=== PATIENT | female | born 1960 | race Caucasian/White ===

== ENCOUNTER → 2016-07-09 | Outpatient (CLI) | payer BC ==
[2015-12-19 10:26] VITALS: BP 132/71
--- NOTE | 2016-07-10 09:46 | MG ---
HISTORY: SCREENING Comparison: 04/17/2014 FINDINGS: Bilateral CC and MLO projections of the right and left breast were obtained. Scattered fibroglandul ar tissue is seen to be present. No significant architectural distortion, mass or clustered microca lcifications can be observed to suggest malignancy. No skin thickening or nipple retraction is appr eciated. No pathological lymphadenopathy can be identified. Benign-appearing calcifications scatte red throughout the right and left breasts are observed. IMPRESSION: NO RADIOGRAPHIC EVIDENCE OF MALIGNANCY. ACR CATEGORY: 2 - benign findings. FOLLOW-UP EXAM 1 YEAR. Diagnostic CAD was utilized and reviewed. * 0 (ZERO) - ASSESSMENT INCOMPLETE; ADDITIONAL IMAGING IS NEEDED. * 1/ (ONE) - NEGATIVE. * 2/II (TWO) - BENIGN FINDINGS. * 3/III (THREE) - PROBABLY BENIGN FINDING; SHORT INTERVAL FOLLOW-UP SUGGESTED. * 4/IV (FOUR) - SUSPICIOUS ABNORMALITY; BIOPSY SHOULD BE CONSIDERED. * 5/V - HIGHLY SUSPICIOUS OF MALIGNANCY; BIOPSY SHOULD BE PERFORMED. A NEGATIVE X-RAY REPORT SHOULD NOT DELAY BIOPSY IF A DOMINANT OR CLINICALLY SUSPICIOUS MASS IS PRESENT; 4 TO 8 PERCENT OF CANCERS ARE NOT IDENTIFIED BY X-RAY. A NEG ATIVE REPORT MAY REINFORCE THE CLINICAL IMPRESSION. ADENOSIS AND DENSE BREASTS MAY OBSCURE AN UNDER LYING NEOPLASM. Reported By:
== END ==
LOC: RAD 11:05
PROVIDERS: ATTEND Obstetrics & Gynecology
DX: Z12.31 Encounter for screening mammogram for malignant neoplasm of breast (principal)
CPT/HCPCS: 77067

== ENCOUNTER 2016-10-21 09:32 | Inpatient (IN) | payer BC ==
[2016-10-21] MEDS ORDERED: KAOPECTATE (NEW FORMULA) PO PRN (12:50)
[2016-10-21] MEDS ORDERED: LIBRIUM PO PRN (12:50)
[2016-10-21] MEDS ORDERED: MAALOX or MYLANTA PO PRN (12:50)
[2016-10-21] MEDS ORDERED: MOTRIN TAB 800 MG PO PRN (12:50)
[2016-10-21] MEDS ORDERED: MILK OF MAGNESIA PO PRN (12:50)
[2016-10-21] MEDS ORDERED: PHENOBARBITAL SODIUM INJ 65 MG VIAL IM PRN (12:50)
[2016-10-21 13:20] LABS: BASOPHILS % (AUTO) 0.4 % (0.2-1.0); MEAN PLATELET VOLUME 8.5 fL (7.4-11.0); MONOCYTES # (AUTO) 0.5 x10^3/uL (0.3-0.8); WHITE BLOOD COUNT 7.6 X10^3/uL (3.6-10.0)
[2016-10-21 13:22] LABS: EOSINOPHILS # (AUTO) 0.1 x10^3/uL (0.0-0.2); EOSINOPHILS % (AUTO) 1.9 % (0.9-2.9); HEMATOCRIT 39.7 % (36.0-47.0); HEMOGLOBIN 13.5 g/dL (12.0-16.0); LYMPHOCYTES % (AUTO) 26.9 % (21.0-51.0); MEAN CORPUSCULAR HEMOGLOBIN 29.6 pg (27.0-34.0); MEAN CORPUSCULAR HGB CONC 33.9 g/dL (33.0-35.0); MEAN CORPUSCULAR VOLUME 87.4 fL (80.0-100.0); MONOCYTES % (AUTO) 6.6 % (0.0-13.0); NEUTROPHILS # (AUTO) 4.9 x10^3/uL (2.2-4.8); NEUTROPHILS % (AUTO) 64.2 % (42.0-75.0); PLATELET COUNT 276 X10^3/uL (150.0-450.0); RED BLOOD COUNT 4.54 X10^6/uL (3.5-5.4); RED CELL DISTRIBUTION WIDTH 14.1 % (11.6-16.5)
--- NOTE | 2016-10-21 13:35 | DR.H&P ---
H&P - History & Physical for Day of: H&P Date: 10/21/16 - Chief Complaint Chief Complaint: weakness, muscle cramps, severe joint pain, n/v/d, weight loss , chest pain and elevated blood pressure - Allergies Allergies/Adverse Reactions: Allergies Allergy/AdvReac Type Severity Reaction Status Date / Time MS Cefuroxime [From Zinacef] Allergy Severe Verified 12/09/15 00:56 MS Cephalosporins Allergy Intermediate Verified 12/09/15 00:56 [Cephalosporins] MS Codeine [Codeine] Allergy Intermediate NAUSEA Verified 12/09/15 00:56 MS Erythromycin Allergy Intermediate Verified 12/09/15 00:56 [Erythromycin] MS Iodine Allergy Intermediate edema Verified 12/09/15 00:56 MS Meperidine Allergy Intermediate NAUSEA Verified 12/09/15 00:56 [From Demerol HCl] MS Morphine [Morphine] Allergy Intermediate NAUSEA Verified 12/09/15 00:56 MS Sulfa Drugs Allergy Intermediate Verified 12/09/15 00:56 MS Povidone Iodine Allergy Mild RASH Verified 12/09/15 00:56 [From Betadine] - History of Present Illness History of Present Illness: 56 WF DIRECT ADMIT FROM DR LIND OFFICE AFTER PRESENTING WITH CO PAIN ALL OVER, MUSCLE AND JOINT PAIN, N/V/D AND CHEST PAIN. PT HAS PMH OF LUMBAR AND CERVICAL SPINE DDD AND HAS BEEN ON OPIOIDS FOR YEARS, PT RECENTLY DECIDED TO TAPER OF METHADONE, SHE STATES SHE HASNT TAKEN ANY IN OVER 2-3 WEEKS. PT CO SEVERE JOINT PAIN AND CHEST PRESSURE ALONG WITH N/V/D. PT CO 10LBS WEIGHT LOSS SINCE SHE WAS LAST SEEN IN OUR OFFICE 2 WEEKS AGO FOR MEDICAL MANAGEMENT OF SELF DETOX PLAN. PT HAD PMH OF HTN AND HER BP IN OFFICE WAS 170/100. PLAN TO ADMIT FOR EVALUATION OF CHEST PAIN AND TREATMENT FOR APPARENT MEDICATION WITHDRAWLS. PLAN TO OBTAIN CARIDAC ENZYMES AND EKGS AND DETOX PROTOCOL. RESUME HOME BP MEDICATION - Past Medical History Past Medical History: Anxiety, Arthritis, Depression, Hypertension, Hypothyroidism Additional Medical History: MORBID OBESITY, NARCOLEPSY, CARDIAC ARRHYTHMIA, HYPOMAGNESEMIA, BACK PAIN, DEGENERATIVE DISC DISEASE - Past Surgical History Surgical History: Tonsillectomy - Family History Family Medical History: Diabetes Mellitus - Social History Does patient currently use any type of tobacco product: No Have you used tobacco products in the last 12 months: No Type of Tobacco Use: None Does any household member use tobacco: No Alcohol Use: None Drug Use: None - Review of Systems Constitutional: Chills, Sweats, Weakness Eyes: No Symptoms Reported ENT: No Symptoms Reported Respiratory: No Symptoms Reported Cardiovascular: Chest Pain, Palpitations Gastrointestinal: Nausea, Vomiting, Abdominal Pain, Diarrhea Genitourinary: No Symptoms Reported Musculoskeletal: Arm Pain, Back Pain, Leg Pain Skin: No Symptoms Reported Neurological: Weakness - Physical Exam Vital Signs: Temperature 97.9 F Pulse Rate [Right Brachial] 56 Respiratory Rate 18 Blood Pressure [Right Arm] 179/84 Blood Pressure 132/71 O2 Sat by Pulse Oximetry 99 Oriented: Normal Eyes: Normal Ear: Normal Nose: Normal Throat: Dry Respiratory: Clear Throughout Cardiovascular: Normal : Normal Auscultation: Bowel Sounds: Normal Palpation: Normal Tenderness: Normal Skin: Diaphoresis Musculoskeletal: Wrist, Hip, Knee, Back:Thoracic, Back:Lumbar, Tender Mood Description: Anxious Affect: Anxious, Depressed Speech Pattern: Clear, Appropriate - Assessment/Plan (1) Chest pain Qualifiers: Chest pain type: precordial chest pain Ischemic chest pain type: I Qualified Code(s): R07.2 - Precordial pain Status: Acute Plan: ADMIT, SERIAL EKG'S CE. BP CONTROL (2) Nausea vomiting and diarrhea Status: Acute Plan: POSSIBLE OPIOID WITHDRAWL SYMPTONS, SEE PMH. DETOX PROTOCOL (3) Hypertension Qualifiers: Hypertension type: H Status: Acute (4) Anxiety Status: Acute (5) Chronic pain disorder Status: Acute
[2016-10-21 13:45] LABS: BLOOD ALCOHOL < 3 mg/dL (0-19.9); CKMB % 1.3 % (<4); CREATINE KINASE 76 Units/L (26-192); TROPONIN I < 0.02 ng/mL (0-1.5)
[2016-10-21 15:05] LABS: BILIRUBIN,URINE NEGATIVE (NEGATIVE); BLOOD/HEMOGLOBIN,URINE NEGATIVE (NEGATIVE); GLUCOSE, URINE NEGATIVE (NEGATIVE); KETONES,URINE NEGATIVE (NEGATIVE); LEUKOCYTE ESTERASE ,URINE NEGATIVE (NEGATIVE); NITRITES,URINE NEGATIVE (NEGATIVE); PROTEIN,URINE NEGATIVE (NEGATIVE); UROBILINOGEN,URINE NORMAL (NORMAL)
[2016-10-21] MEDS: NS 1000 ML 1,000 ML with THIAMINE HCL INJ 100 MG, MAGNESIUM SULFATE 50% INJ 1 GM, MVI I... IV SCH ×5 (15:08)
[2016-10-21 15:12] LABS: APPEARANCE,URINE CLEAR (CLEAR); BACTERIA,URINE TRACE /HPF (NEGATIVE); COLOR,URINE YELLOW (YELLOW); RBC,URINE 0-1 /HPF (NEGATIVE); SQUAMOUS EPITHELIAL CELL,UR FEW /HPF (NEGATIVE)
[2016-10-21] MEDS: MAGNESIUM SULFATE 50% INJ IM SCH ×2 (15:16→20:58)
[2016-10-21] MEDS: PHENOBARBITAL TAB 30 MG (32.4MG) PO SCH ×3 (15:16→20:51)
[2016-10-21 15:27] VITALS: BMI 41.1
[2016-10-21] MEDS ORDERED: CYTOTEC PO PRN (15:38)
[2016-10-21 19:48] LABS: CKMB % 1.1 % (<4); CREATINE KINASE 93 Units/L (26-192); CREATINE KINASE MB < 1.0 ng/mL (0-4.0); TROPONIN I < 0.02 ng/mL (0-1.5)
[2016-10-21] MEDS: AMBIEN PO SCH (20:51)
[2016-10-21] MEDS: DYLOJECT INJ IVP SCH (20:52)
[2016-10-22 01:54] LABS: CKMB % 1.7 % (<4); CREATINE KINASE 58 Units/L (26-192); CREATINE KINASE MB < 1.0 ng/mL (0-4.0); TROPONIN I < 0.02 ng/mL (0-1.5)
[2016-10-22] MEDS: MAGNESIUM SULFATE 50% INJ IM SCH ×2 (04:53→13:17)
--- NOTE | 2016-10-22 06:40 | RAD ---
HISTORY: Hypertension, chest pain Study: Two-view chest Comparison: December 09, 2015 Findings: The trachea is midline. The cardiac silhouette is unremarkable. The lungs are clear without focal infiltrate or effusion. The bony thorax is unremarkable. IMPRESSION: 1. No acute cardiopulmonary disease. Reported By:
[2016-10-22] MEDS: PHENOBARBITAL TAB 30 MG (32.4MG) PO SCH ×4 (08:42→20:40)
[2016-10-22] MEDS: DYLOJECT INJ IVP SCH (08:43)
[2016-10-22] MEDS ORDERED: THIAMINE HCL INJ IM SCH (09:00)
[2016-10-22] MEDS: SYNTHROID 25 mcg TAB PO SCH (11:39)
[2016-10-22] MEDS: NS 1000 ML 1,000 ML with THIAMINE HCL INJ 100 MG, MAGNESIUM SULFATE 50% INJ 1 GM, MVI I... IV SCH ×10 (13:21→18:21)
[2016-10-22] MEDS ORDERED: TORADOL 15 MG VIAL IVP PRN (18:02)
[2016-10-22] MEDS ORDERED: NAPROSYN PO PRN (18:18)
[2016-10-22] MEDS ORDERED: ZANAFLEX PO PRN (18:19)
--- NOTE | 2016-10-22 18:23 | PCM.PROG ---
Progress Note - Progress Note for Day of Date: 10/22/16 - Subjective Subjective: pt co pain all over this am, normally take nsaid arthrotec home med , pt cardiac stable, reveiewed with pt. will repeat am labs, continue with detox protocol, toradol iv prn pain and zanaflex. pt co lle swelling and pain, pt states history of venous insufficiency, will us le, obtain report from vascular dr mtz in [place]. - Past Medical Family Social History Past Med/Fam/Surg Hx: No changes since H&P Allergies: Allergies cefuroxime Allergy (Verified 10/21/16 16:53) Cephalosporins Allergy (Verified 10/21/16 16:53) codeine Allergy (Verified 10/21/16 16:53) erythromycin base Allergy (Verified 10/21/16 16:53) iodine Allergy (Verified 10/21/16 16:53) meperidine Allergy (Verified 10/21/16 16:53) morphine Allergy (Verified 10/21/16 16:53) povidone-iodine Allergy (Verified 10/21/16 16:53) Sulfa (Sulfonamide Antibiotics) [SULFA] Allergy (Verified 10/21/16 16:53) - Review of Systems ROS: No change since H&P - Vital Signs and I&O's Vital Signs: Temperature 97.8 F Pulse Rate [Right Brachial] 66 Respiratory Rate 20 Blood Pressure [Left Arm] 181/76 Blood Pressure [Right Arm] 164/77 Blood Pressure 132/71 O2 Sat by Pulse Oximetry 97 Intake and Output: Intake & Output 10/20/16 10/21/16 10/22/16 10/23/16 11:59 11:59 11:59 11:59 Intake Total 1320 760 Output Total 600 Balance 720 760 - Physical Exam Oriented: Normal Eyes: Normal Ear: Normal Nose: Normal Throat: Dry Cardiovascular: Normal, Edema (left > right +1) : Normal Auscultation: Bowel Sounds: Normal Tenderness: Normal Skin: Diaphoresis Musculoskeletal: Wrist, Hip, Knee, Back:Thoracic, Back:Lumbar, Tender Mood Description: Anxious Affect: Anxious, Depressed Speech Pattern: Clear, Appropriate - Laboratory and Diagnostics Result Diagrams: 10/21/16 13:10 Labs: Laboratory WBC 7.6 X10^3/uL (3.6-10.0) 10/21/16 13:10 RBC 4.54 X10^6/uL (3.5-5.4) 10/21/16 13:10 Hgb 13.5 g/dL (12.0-16.0) 10/21/16 13:10 Hct 39.7 % (36.0-47.0) 10/21/16 13:10 MCV 87.4 fL (80.0-100.0) 10/21/16 13:10 MCH 29.6 pg (27.0-34.0) 10/21/16 13:10 MCHC 33.9 g/dL (33.0-35.0) 10/21/16 13:10 RDW 14.1 % (11.6-16.5) 10/21/16 13:10 Plt Count 276 X10^3/uL (150.0-450.0) 10/21/16 13:10 Plt Count Comment Cancelled 10/21/16 13:10 MPV 8.5 fL (7.4-11.0) 10/21/16 13:10 Neut % 64.2 % (42.0-75.0) 10/21/16 13:10 Lymph % 26.9 % (21.0-51.0) 10/21/16 13:10 [place] % 6.6 % (0.0-13.0) 10/21/16 13:10 Eos % 1.9 % (0.9-2.9) 10/21/16 13:10 Baso % 0.4 % (0.2-1.0) 10/21/16 13:10 Neut # 4.9 x10^3/uL (2.2-4.8) H 10/21/16 13:10 Lymph # 2.0 X10^3/uL (1.3-2.9) 10/21/16 13:10 [place] # 0.5 x10^3/uL (0.3-0.8) 10/21/16 13:10 Eos # 0.1 x10^3/uL (0.0-0.2) 10/21/16 13:10 Baso # 0.0 X10^3/uL (0.0-0.1) 10/21/16 13:10 Absolute Nucleated RBC 0.0 /100WBC 10/21/16 13:10 Total Counted Cancelled 10/21/16 13:10 Neutrophils % (Manual) Cancelled 10/21/16 13:10 Band Neutrophils % Cancelled 10/21/16 13:10 Lymphocytes % (Manual) Cancelled 10/21/16 13:10 Monocytes % (Manual) Cancelled 10/21/16 13:10 Eosinophils % (Manual) Cancelled 10/21/16 13:10 Basophils % (Manual) Cancelled 10/21/16 13:10 Metamyelocytes % Cancelled 10/21/16 13:10 Myelocytes % Cancelled 10/21/16 13:10 Promyelocytes % Cancelled 10/21/16 13:10 Nucleated RBCs Cancelled 10/21/16 13:10 Atypical Lymphocytes Cancelled 10/21/16 13:10 Blast Cells Cancelled 10/21/16 13:10 Smudge Cells Cancelled 10/21/16 13:10 Toxic Granulation Cancelled 10/21/16 13:10 Dohle Bodies Cancelled 10/21/16 13:10 Alexx Rods Cancelled 10/21/16 13:10 Plt Clumps, EDTA Cancelled 10/21/16 13:10 Giant Platelets Cancelled 10/21/16 13:10 Plt Morphology Comment Cancelled 10/21/16 13:10 RBC Morphology Cancelled 10/21/16 13:10 Dimorphic RBCs Cancelled 10/21/16 13:10 Polychromasia Cancelled 10/21/16 13:10 Hypochromasia Cancelled 10/21/16 13:10 Poikilocytosis Cancelled 10/21/16 13:10 Basophilic Stippling Cancelled 10/21/16 13:10 Anisocytosis Cancelled 10/21/16 13:10 Microcytosis Cancelled 10/21/16 13:10 Macrocytosis Cancelled 10/21/16 13:10 Spherocytes Cancelled 10/21/16 13:10 Pappenheimer Bodies Cancelled 10/21/16 13:10 Sickle Cells Cancelled 10/21/16 13:10 Target Cells Cancelled 10/21/16 13:10 Tear Drop Cells Cancelled 10/21/16 13:10 Ovalocytes Cancelled 10/21/16 13:10 Stomatocytes Cancelled 10/21/16 13:10 Helmet Cells Cancelled 10/21/16 13:10 [place] Bodies Cancelled 10/21/16 13:10 [place] Rings Cancelled 10/21/16 13:10 Lb Cells Cancelled 10/21/16 13:10 Crenated Cell Cancelled 10/21/16 13:10 Acanthocytes (Spur) Cancelled 10/21/16 13:10 Rouleaux Cancelled 10/21/16 13:10 Schistocytes Cancelled 10/21/16 13:10 Creatine Kinase 58 Units/L (26-192) 10/22/16 01:10 CK-MB (CK-2) < 1.0 ng/mL (0-4.0) 10/22/16 01:10 CK/CKMB % Calc 1.7 % (<4) 10/22/16 01:10 Troponin I < 0.02 ng/mL (0-1.5) 10/22/16 01:10 Specimen Type Clean catch urine 10/21/16 14:51 Urine Color Yellow (YELLOW) 10/21/16 14:51 Urine Appearance Clear (CLEAR) 10/21/16 14:51 Urine pH 6.0 (5.0 - 8.0) 10/21/16 14:51 Ur Specific [place] 1.010 (1.000-1.030) 10/21/16 14:51 Urine Protein Negative (NEGATIVE) 10/21/16 14:51 Urine Glucose (UA) Negative (NEGATIVE) 10/21/16 14:51 Urine Ketones Negative (NEGATIVE) 10/21/16 14:51 Urine Occult Blood Negative (NEGATIVE) 10/21/16 14:51 Urine Nitrite Negative (NEGATIVE) 10/21/16 14:51 Urine Bilirubin Negative (NEGATIVE) 10/21/16 14:51 Urine Urobilinogen Normal (NORMAL) 10/21/16 14:51 Ur Leukocyte Esterase Negative (NEGATIVE) 10/21/16 14:51 Urine RBC 0-1 /HPF (NEGATIVE) 10/21/16 14:51 Urine WBC 0-1 /HPF (NEGATIVE) 10/21/16 14:51 Ur Squamous Epith Cells Few /HPF (NEGATIVE) 10/21/16 14:51 Urine Bacteria Trace /HPF (NEGATIVE) 10/21/16 14:51 Ur Culture Indicated? No/not indicated 10/21/16 14:51 Urine Opiates Screen Negative (NEG=<300) 10/21/16 14:51 Urine Methadone Screen Negative (NEG=<300) 10/21/16 14:51 Ur Barbiturates Screen Negative (NEG=<200) 10/21/16 14:51 Ur Phencyclidine Scrn Negative (NEG=<25) 10/21/16 14:51 Ur Amphetamines Screen Negative (NEG=<1000) 10/21/16 14:51 U Benzodiazepines Scrn Negative (NEG=<200) 10/21/16 14:51 Urine Cocaine Screen Negative (NEG=<300) 10/21/16 14:51 U Marijuana (THC) Screen Negative (NEG=<50) 10/21/16 14:51 Ethyl Alcohol mg/dL < 3 mg/dL (0-19.9) 10/21/16 13:10 - Plan (1) Chest pain Status: Acute Qualifiers: Chest pain type: precordial chest pain Ischemic chest pain type: I Qualified Code(s): R07.2 - Precordial pain Plan: SERIAL EKG'S CE stable, will continue. BP CONTROL (2) Nausea vomiting and diarrhea Status: Acute Plan: POSSIBLE OPIOID WITHDRAWL SYMPTONS, SEE PMH. DETOX PROTOCOL (3) Hypertension Status: Acute Qualifiers: Hypertension type: H (4) Anxiety Status: Acute (5) Chronic pain disorder Status: Acute Plan: nsaids, muscle relaxers (6) Edema extremities Status: Acute Plan: bilateral venous doppler
[2016-10-22] MEDS: AMBIEN PO SCH (20:40)
--- NOTE | 2016-10-22 22:47 | VAS ---
HISTORY: 56-year-old female with lower extremity edema and venous insufficiency. Study: Venous duplex Doppler. Comparison: Left lower extremity venous duplex Doppler April 04, 2013. TECHNIQUE: Multiple rizzo scale and color flow Doppler images of the deep venous system were obtaine d of the right and left lower extremity. FINDINGS: The deep venous system of the right and left lower extremities were evaluated from the level of the common femoral vein through the popliteal vein. Normal color flow and augmentation can be observed. In addition, normal compression is seen throughout the deep venous system. IMPRESSION: 1. Negative for DVT. Reported By:
[2016-10-23 05:41] LABS: BASOPHILS % (AUTO) 0.3 % (0.2-1.0); EOSINOPHILS # (AUTO) 0.2 x10^3/uL (0.0-0.2); EOSINOPHILS % (AUTO) 2.6 % (0.9-2.9); HEMATOCRIT 36.8 % (36.0-47.0); HEMOGLOBIN 12.5 g/dL (12.0-16.0); LYMPHOCYTES % (AUTO) 22.6 % (21.0-51.0); MEAN CORPUSCULAR HEMOGLOBIN 29.7 pg (27.0-34.0); MEAN CORPUSCULAR HGB CONC 33.8 g/dL (33.0-35.0); MEAN CORPUSCULAR VOLUME 87.7 fL (80.0-100.0); MEAN PLATELET VOLUME 9.2 fL (7.4-11.0); MONOCYTES # (AUTO) 0.8 x10^3/uL (0.3-0.8); MONOCYTES % (AUTO) 8.6 % (0.0-13.0); NEUTROPHILS # (AUTO) 5.8 x10^3/uL (2.2-4.8); NEUTROPHILS % (AUTO) 65.9 % (42.0-75.0); PLATELET COUNT 255 X10^3/uL (150.0-450.0); RED CELL DISTRIBUTION WIDTH 14.2 % (11.6-16.5); WHITE BLOOD COUNT 8.8 X10^3/uL (3.6-10.0)
[2016-10-23 05:46] LABS: ALANINE AMINOTRANSFERASE 29 Units/L (12-78); ALBUMIN 3.1 g/dL (3.4-5.0); ALKALINE PHOSPHATASE 88 Units/L (46-116); ASPARTATE AMINO TRANSFERASE 17 Units/L (15-37); BLOOD UREA NITROGEN 8 mg/dL (7-18); CARBON DIOXIDE 30.8 mmol/L (21-32); CHLORIDE 111 mmol/L (98-107); COR CA(FOR HYPOALB) 8.7 mg/dL (8.5-10.1); CREATININE 0.68 mg/dL (0.55-1.02); GLUCOSE 81 mg/dL (65-99); SODIUM 145 mmol/L (136-145); TOTAL PROTEIN 5.9 g/dL (6.4-8.2); eGFR BLACK RACES > 60 (>60); eGFR NON BLACK RACES > 60 (>60)
[2016-10-23 08:16] VITALS: BP 144/87
[2016-10-23] MEDS ORDERED: NORVASC TAB 5 MG PO ONE (09:03)
[2016-10-23] MEDS: PHENOBARBITAL TAB 30 MG (32.4MG) PO SCH (09:11)
[2016-10-23] MEDS: SYNTHROID 25 mcg TAB PO SCH (09:11)
[2016-10-24] MEDS ORDERED: PHENOBARBITAL TAB 15 MG (16.2MG) PO SCH (11:10)
== END 2016-10-23 11:45 | disposition home or self-care (01) | DRG 313 ==
LOC: MED/SURG 09:32
PROVIDERS: ADMIT Internal Medicine; ATTEND Internal Medicine
DX: R07.2 Precordial pain (principal); F11.23 Opioid dependence with withdrawal; R11.2 Nausea with vomiting, unspecified; R19.7 Diarrhea, unspecified; I10 Essential (primary) hypertension; R25.2 Cramp and spasm; M25.50 Pain in unspecified joint; R63.4 Abnormal weight loss; F41.8 Other specified anxiety disorders; M13.89 Other specified arthritis, multiple sites; E03.8 Other specified hypothyroidism; M51.36 Other intervertebral disc degeneration, lumbar region; M50.80 Other cervical disc disorders, unspecified cervical region; R60.0 Localized edema; Z86.79 Personal history of other diseases of the circulatory system; G47.419 Narcolepsy without cataplexy; R68.83 Chills (without fever); Z79.899 Other long term (current) drug therapy
CPT/HCPCS: 36415; 71020; 80053; 80307; 80320; 81001; 82550; 82553; 84484; 85025; 93005; 93010; 93970; A4222; G0434; G6040; J2560; J3411; J3475; J3490

== ENCOUNTER → 2016-11-13 | Outpatient (CLI) | payer BC ==
[2016-10-23 08:16] VITALS: BP 144/87
== END ==
LOC: RAD 12:23
PROVIDERS: ATTEND Nurse Practitioner Family
DX: M51.37 Other intervertebral disc degeneration, lumbosacral region (principal); M15.8 Other polyosteoarthritis; I87.2 Venous insufficiency (chronic) (peripheral)
CPT/HCPCS: 72148